=== PATIENT | female | born 1955 | race Caucasian/White ===

== ENCOUNTER 2019-05-08 15:00 | Inpatient (IN) | payer MEDICARE ==
--- NOTE | 2019-05-21 17:02 | HP ---
HISTORY AND PHYSICAL: DATE OF ADMISSION/SURGERY: 05/29/19 DATE OF OFFICE VISIT: 05/19/19 SURGEON: Linn Robles MD * (DICTATED BY RANDY TALLEY) PROCEDURE: Right total knee arthroplasty. CHIEF COMPLAINT: Right knee pain. HISTORY OF PRESENT ILLNESS: Ms. Coley is a 64-year-old female with severe right knee pain secondary to end-stage osteoarthritis. She has elected to proceed with a right total knee arthroplasty. PAST MEDICAL HISTORY: Depression and osteoarthritis. 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 CURRENT MEDICATIONS: 1. Zoloft 200 mg daily. 2. Vitamin E. 3. Turmeric. 4. Wellbutrin 200 mg daily. 5. Clonazepam 1 mg a day. 6. Cinnamon. 7. Vitamin D3. ALLERGIES: No known drug allergies. FAMILY HISTORY: Diabetes and cancer. SOCIAL HISTORY: She is a 64-year-old female. She lives with her . She does not smoke or use drugs. REVIEW OF SYSTEMS: A complete 14-point review of systems was reviewed with the patient. It was all negative or noncontributory. PHYSICAL EXAMINATION GENERAL: She is well developed, well nourished, in no acute distress. VITAL SIGNS: She stands 62 inches tall, weighs 193 pounds. Her blood pressure is 138/88, her heart rate is 77. HEENT: Normocephalic, atraumatic. NECK: Supple. No palpable lymph nodes. PULMONARY: The lungs are clear to auscultation bilaterally. CARDIO: Regular rate and rhythm. Strong S1 and S2. ABDOMEN: Soft, nontender, and nondistended. NEUROLOGIC: She is alert and oriented x3. MUSCULOSKELETAL: Right lower extremity, the skin is intact. There are no open wounds or abrasions. There is some mild effusion of the right knee joint, some tenderness along the medial joint line. Range of motion is 10 to 120 degrees of flexion with patellofemoral crepitus. She is able to dorsiflex and plantarflex, has a 2+ dorsalis pedis pulse and intact sensation. ASSESSMENT AND PLAN: Ms. Coley is a 64-year-old female with severe end- stage osteoarthritis of the right knee. She has failed conservative treatment and elected to proceed with a right total knee arthroplasty. The surgery is scheduled for 05/29/[address] Robles discussed the risks and benefits of the surgery at today's visit and all of her questions were answered. She will follow up with Dr. Robles 2 weeks after the surgery. RANDY TALLEY [id number]/[facility] #: [id number] EDNA
[2019-05-28] MEDS ORDERED: Buffered Lidocaine 1% SYRIN* 1 ML/SYRINGE INTRADERM ONE (13:49)
[2019-05-29] MEDS ORDERED: Dexamethasone IV* 4 MG/ML 1 ML (4 MG) IV SLOW PU ONE (06:00)
[2019-05-29] MEDS ORDERED: Lactated Ringers 1000 ML Bag* 1,000 ML IV SCH (06:00)
[2019-05-29] MEDS ORDERED: Gabapentin CAP(*) 300 MG PO ONE (06:00)
[2019-05-29] MEDS ORDERED: Famotidine IV* 10 MG/ML 2 ML (20 mg) IV ONE (06:00)
[2019-05-29] MEDS ORDERED: celeCOXIB CAP* 200 MG PO ONE (06:00)
[2019-05-29] MEDS ORDERED: Gabapentin CAP(*) 300 MG ONE (07:55)
[2019-05-29] MEDS ORDERED: Dexamethasone IV* 4 MG/ML 1 ML (4 MG) ONE (07:55)
[2019-05-29] MEDS ORDERED: celeCOXIB CAP* 200 MG ONE (07:56)
[2019-05-29] MEDS ORDERED: ceFAZolin 2 GM in NS PREMIX(*) 2 GM/100 ML BAG IVPB ONE (07:56)
[2019-05-29] MEDS ORDERED: Buffered Lidocaine 1% SYRIN* 1 ML/SYRINGE INTRADERM ONE (07:56)
[2019-05-29] MEDS ORDERED: Famotidine IV* 10 MG/ML 2 ML (20 mg) ONE (07:56)
[2019-05-29] MEDS ORDERED: Tranexamic Acid 1,000 MG in NS 0.9% 50 ML IV ONE (08:00)
[2019-05-29] MEDS ORDERED: ROPIVACAINE 5 MG/ML 30 ML BTL (0.5%) ONE ×2 (08:08→09:00)
[2019-05-29] MEDS ORDERED: Lidocaine 2% PF * 5 ML VIAL ONE (08:08)
[2019-05-29] MEDS ORDERED: Midazolam* 1 MG/ML 2 ML VIAL (2 MG) ONE ×2 (08:10→10:12)
[2019-05-29] MEDS ORDERED: fentaNYL* 50 MCG/ML 2 ML VIAL (100 MCG VIAL) ONE ×2 (08:10→11:27)
[2019-05-29] MEDS ORDERED: Phenylephrine 40 MCG/ML SYRINGE ONE (09:23)
[2019-05-29] MEDS ORDERED: Bupivacaine 0.5% SDV PF* 30ML VIAL ONE (10:21)
[2019-05-29] MEDS ORDERED: Acetaminophen IV 1GM/100ML * 1,000 MG/100 ML VIAL IVPB ONE (10:26)
[2019-05-29] MEDS ORDERED: Ondansetron INJ* 2 MG/ML VIAL IV PRN ×2 (10:26→11:00)
[2019-05-29] MEDS ORDERED: Naloxone* 0.4 MG/ML 1 ML VIAL IV PRN (10:26)
[2019-05-29] MEDS ORDERED: diPHENhydraMINE PO* 25 MG PO PRN (11:00)
[2019-05-29] MEDS ORDERED: Ondansetron ODT TAB* 4 MG PO PRN (11:00)
[2019-05-29] MEDS ORDERED: diPHENhydraMINE IV* 50 MG/ML 1 ml VIAL (BENADRYL) IV PRN (11:00)
[2019-05-29] MEDS ORDERED: Morphine INJ* 2 MG/ML 1 ML SYRINGE (TWO MG - NEW SYRINGE VERSION) IV PRN (11:00)
[2019-05-29] MEDS ORDERED: oxyCODONE/Acetamin 5/325 MG* TAB PO PRN ×2 (11:00)
[2019-05-29] MEDS ORDERED: traMADol TAB* 50 MG PO PRN (11:00)
[2019-05-29] MEDS ORDERED: Magnesium Hydroxide LIQ* 30 ML UDC PO PRN (11:00)
[2019-05-29] MEDS ORDERED: clonazePAM TAB(*) 1 MG PO PRN (11:04)
[2019-05-29] MEDS ORDERED: HYDROmorphone INJ1* 1 MG/ML SYRINGE IV PRN (11:23)
[2019-05-29] MEDS ORDERED: Acetaminophen IV 1GM/100ML * 100 ML ONE (11:23)
--- NOTE | 2019-05-29 11:23 | PN ---
Progress Note - Progress Note Date of Service: 05/29/19 Note: resting in recovery; pain well controlled. able to DF/PF, 2+ DP pulse. dressing c/d/i
[2019-05-29] MEDS: fentaNYL* 50 MCG/ML 2 ML VIAL (100 MCG VIAL) IV PRN ×2 (11:27→11:53)
[2019-05-29] MEDS: Lactated Ringers 1000 ML Bag* 1,000 ML IV SCH ×2 (13:16→23:12)
[2019-05-29] MEDS ORDERED: oxyCODONE/Acetamin 5/325 MG* TAB ONE (13:35)
[2019-05-29] MEDS: Acetaminophen TAB* 325 MG PO SCH ×2 (13:45→22:10)
[2019-05-29] MEDS ORDERED: Propofol* 500 MG/50 ML BTL ONE (14:34)
[2019-05-29] MEDS ORDERED: Propofol* 10 MG/ML 20 ML BTL ONE (14:35)
[2019-05-29] MEDS: oxyCODONE TAB* 5 MG TAB PO PRN (16:03)
[2019-05-29] MEDS: ceFAZolin 1 GM* Q8H (AddVan) IVPB SCH ×2 (16:52)
[2019-05-29] MEDS ORDERED: ceFAZolin 1 GM in Dextrose (*) 1 GM/50 ML BAG IVPB SCH (17:15)
--- NOTE | 2019-05-29 17:47 | OP ---
Operative Report - Blank - Operative Report Date of Operation: 05/29/19 Note: GUILLE RODRIGUEZ 1955 Date of Surgery: 05/29/19 Linn Robles MD [employer] Supervisor: Gladys PADILLA did help throughout the procedure with preparation of the knee, wound retraction, manipulation of the knee, and wound closure. Anesthesiologist: Dr. Cisneros Anesthesia Type: Spinal Preoperative Diagnosis: Right severe degenerative osteoarthritis of the knee Postoperative Diagnosis: As above Procedure Performed: Right Total Knee Arthroplasty Tourniquet time: 39 minutes Complications: None Specimen: Bone and cartilage from the right knee joint sent to pathology. Hardware Used: Cemented Patel [employer] Nephew total knee hardware was used - For the femur a size 4 right narrow oxinium legion posterior stabilized femoral component, for the tibia a size 3 right masood II tibial baseplate, for the insert a size 9mm 3-4 posterior stabilized articular polyethylene insert, and for the patella a size 32 3-peg all poly patella. Brief History/Indication: GUILLE RODRIGUEZ was known in clinic and had a history of severe right knee pain and swelling. She failed conservative treatment with anti-inflammatories, pain pills, intra-articular injections and physical therapy. She elected to undergo right total knee arthroplasty due to continued pain and decreased quality of life. Radiographs showed severe end stage osteoarthritis of the knee with bone on bone contact. Informed consent was obtained from the patient. She understood the risks of surgery included but were not limited to: bleeding, infection, damage to nearby structures, intraoperative fracture, nerve palsy, failure of the hardware, early loosening, knee stiffness or loss of motion, anesthesia complications, stroke, heart attack , blood clot and . She wished to proceed. Intra-Operative Findings: Intraoperatively the patient was noted to have severe loss of cartilage in all 3 compartments of the knee. Description of the Procedure: GUILLE RODRIGUEZ was identified in the preanesthesia unit. Her right knee was marked as the correct operative side. Informed consent was signed and placed in the chart. The patient was taken to the operating room and placed under anesthesia without complication. A johnson catheter was placed. A tourniquet was placed on the right thigh. The right lower extremity was prepped and draped in the usual sterile fashion. Preoperative time-out was made to correctly identify the patient, side and site. Appropriate intraoperative antibiotics were given within one hour of incision. Tourniquet was inflated. A midline incision was made and carried sharply down to the extensor mechanism. A new 10 blade was used to make a standard medial parapatellar arthrotomy. The patella was subluxed laterally. Electrocautery was used to dissect soft tissue off the superomedial tibia to the midsagittal plane. The knee was flexed up. The anterior horn of the lateral meniscus and the ACL were sharply incised. A drill was used to enter the distal femur. The intramedullary distal femoral cutting guide was pinned on the distal femur. The oscillating saw was used to make the distal femoral cut. The external rotation guide was pinned on the distal femur and the distal femur was sized to a size 4. The size 4 multi-cutting jig was pinned on the distal femur. The oscillating saw was used to make the appropriate 4 chamfer cuts. Next the PCL was completely released. The extramedullary tibial cutting guide was pinned on the proximal tibia and the oscillating saw was used to make the proximal tibial cut perpendicular to the mechanical axis of the tibia. The bone was carefully removed. The knee was brought out into full extension. The spacer block was placed and had excellent fit with the knee in full extension. The medial and lateral ligaments were well balanced. The flexion and extension gaps were well balanced. The knee was flexed up. Lamina size cutter was placed both medially and laterally. Any remaining meniscus was removed with electrocautery. Curved osteotome was used to remove any posterior osteophytes. The tibial tray and drop arleen were placed and confirmed a satisfactory tibial cut. The size 4 right narrow femoral trial was impacted onto the distal femur. This trial had excellent fit and stability. The box for the posterior stabilized implant was prepared using a box cut osteotome and a reamer. Next a tibial tray trial and 9 mm insert trial was placed. The knee was taken through a range of motion and had full extension to 130 degrees of flexion. Patellofemoral tracking was satisfactory. The patella was inverted and sized to a size 32. Three peg holes were drilled through the size 32 drill guide. The trial patella was placed and the knee was taken through a range of motion. There was satisfactory patellofemoral tracking. All trials were removed. The tibia was subluxed anteriorly and sized to a size 3. The proximal tibial was prepared with a size 3 keel punch. All bony cut surfaces were irrigated with sterile saline and dried. Final implants were cemented into place starting with the tibia, followed by the femur, and last the patella. A 9 mm insert trial was placed and the knee was brought into full extension. Tourniquet was turned down and the knee was copiously irrigated with sterile saline. Electrocautery was used to obtain meticulous hemostasis. Once the cement had fully cured, the insert trial was removed. Any excess cement was removed from around the hardware and capsule. Final insert chosen was a 9 mm posterior stabilized Masood II articular insert size 3-4. Stability of the insert was checked and noted to be stable. The extensor mechanism was closed using number 1 vicryls. The rest of the incision was closed in a layered fashion using 0 and 2-0 vicryls. The skin was closed using 3-0 nylon suture. Sterile xeroform, 4x4s and webril were used to cover the incision. Dat wrap and cold pack were used to cover the dressings. The patients anesthesia was reversed without difficulty. She was taken to the PACU in stable condition. Intended weight-bearing will be as tolerated.
[2019-05-29] MEDS: Docusate CAP* 100 MG PO SCH (20:53)
[2019-05-29] MEDS: HYDROcodone/ACETAMIN 5-325 MG* 1 TAB PO SCH (20:54)
[2019-05-29] MEDS: Magnesium Hydroxide LIQ* 30 ML UDC PO SCH (20:54)
[2019-05-29] MEDS: Sertraline* 100 MG TAB PO SCH (20:54)
[2019-05-30] MEDS: ceFAZolin 1 GM* Q8H (AddVan) IVPB SCH ×4 (01:36→09:51)
[2019-05-30] MEDS: Cyclobenzaprine TAB* 10 MG PO PRN ×3 (03:58→16:45)
[2019-05-30] MEDS: oxyCODONE TAB* 5 MG TAB PO PRN ×4 (03:58→21:47)
[2019-05-30] MEDS: Acetaminophen TAB* 325 MG PO SCH (06:23)
[2019-05-30 06:26] LABS: Hematocrit 32 % (35-47); Hemoglobin 11.1 g/dL (12.0-16.0); Mean Platelet Volume 6.8 fL (7.4-10.4); Platelet Count 189 10^3/uL (150-450)
[2019-05-30 06:46] LABS: BUN/Creatinine Ratio 26.4 (8-20); Calcium 8.7 mg/dL (8.6-10.3); EGFR African American 139.7 (>60); EGFR Non-African American 115.4 (>60); Potassium 3.9 mmol/L (3.5-5.0)
[2019-05-30] MEDS: CINNAMON BARK PO SCH ×2 (08:08→16:47)
[2019-05-30] MEDS: TURMERIC ROOT EXTRACT PO SCH ×2 (08:08→16:46)
[2019-05-30] MEDS: Vitamin B Complex TAB PO SCH (08:11)
[2019-05-30] MEDS: buPROPion SR TAB.SR* 200 MG PO SCH (08:11)
[2019-05-30] MEDS: Morphine TAB Extended Release (*) 15 MG TAB.ER PO SCH ×2 (08:11→20:11)
[2019-05-30] MEDS: Apixaban* 2.5 MG TAB PO SCH ×2 (08:13→21:47)
[2019-05-30] MEDS: Vitamin THERAPEUTIC TAB PO SCH (08:13)
[2019-05-30] MEDS: Magnesium Hydroxide LIQ* 30 ML UDC PO SCH ×2 (08:13→21:47)
[2019-05-30] MEDS: Docusate CAP* 100 MG PO SCH ×2 (08:13→21:47)
[2019-05-30] MEDS: HYDROcodone/ACETAMIN 5-325 MG* 1 TAB PO SCH (08:17)
--- NOTE | 2019-05-30 08:24 | PN ---
Progress Note - Progress Note Date of Service: 05/30/19 SOAP: Subjective: POD #1 Right TKA. C/O pain with movement. Denies CP/SOB, f/c, n/v or calf pain. Objective: Vital Signs: Temp Pulse Resp BP Pulse Ox 97.7 F 94 16 134/78 97 05/30/19 03:46 05/30/19 03:46 05/30/19 08:14 05/30/19 03:46 05/30/19 04:59 Gen: A&Ox3, NAD at rest laying in bed RLE: Dressing C/D/I. Thigh soft with TTP. + f/e at ankle and MTPs, N/V intact. Calf soft, NT Labs: Laboratory Results - last 24 hr 05/30/19 05/30/19 05:56 05:56 Hgb 11.1 L Hct 32 L Plt Count 189 MPV 6.8 L Sodium 138 Potassium 3.9 Chloride 104 Carbon Dioxide 29 Anion Gap 5 BUN 14 Creatinine 0.53 Est GFR ( Amer) 139.7 Est GFR (Non-Af Amer) 115.4 BUN/Creatinine Ratio 26.4 H Glucose 158 H Calcium 8.7 Assessment: POD #1 Right TKA Plan: Cont with current pain medication PT, WBAT RLE Eliquis for DVT ppx Plan for d/c tomorrow once pain is more under control
[2019-05-30] MEDS: Sertraline* 100 MG TAB PO SCH (21:47)
[2019-05-31 05:54] LABS: Hematocrit 35 % (35-47); Hemoglobin 11.9 g/dL (12.0-16.0); Mean Platelet Volume 6.7 fL (7.4-10.4); Platelet Count 207 10^3/uL (150-450)
[2019-05-31] MEDS: oxyCODONE TAB* 5 MG TAB PO PRN ×2 (05:56→09:54)
[2019-05-31 07:36] VITALS: BP 131/49
[2019-05-31] MEDS: Morphine TAB Extended Release (*) 15 MG TAB.ER PO SCH (07:47)
[2019-05-31] MEDS: Magnesium Hydroxide LIQ* 30 ML UDC PO SCH (09:53)
[2019-05-31] MEDS: Docusate CAP* 100 MG PO SCH (09:53)
[2019-05-31] MEDS: Vitamin B Complex TAB PO SCH (09:53)
[2019-05-31] MEDS: buPROPion SR TAB.SR* 200 MG PO SCH (09:53)
[2019-05-31] MEDS: Vitamin THERAPEUTIC TAB PO SCH (09:54)
[2019-05-31] MEDS: Apixaban* 2.5 MG TAB PO SCH (09:54)
[2019-05-31] MEDS: CINNAMON BARK PO SCH (09:55)
[2019-05-31] MEDS: TURMERIC ROOT EXTRACT PO SCH (09:56)
--- NOTE | 2019-05-31 10:09 | PN ---
Progress Note - Progress Note Date of Service: 05/31/19 SOAP: Subjective: Pt is doing well. Pain better controlled. Denies calf pain, cp/sob or F/C Objective: Pe- 64 y/o WDWN F NAD A&Ox3 RLE- dressing changed inc c/d/i, calf soft NT, +DF/PF ankle, +2 Dp pulse, SILT distally Vital Signs Temp Pulse Resp BP Pulse Ox 98.2 F 82 18 131/49 96 05/31/19 07:36 05/31/19 07:36 05/31/19 09:57 05/31/19 07:36 05/31/19 07:36 Laboratory Results - last 24 hr 05/31/19 05:37 Hgb 11.9 L Hct 35 Plt Count 207 MPV 6.7 L Assessment: POD #2 Right TKA Plan: Percocet, ms contin for pain PT, WBAT RLE Eliquis for DVT ppx Plan for d/c home today with home services
--- NOTE | 2019-05-31 10:21 | DS ---
Orthopedic Discharge Summary - Discharge Summary Date of Admission:05/29/19 Date of Discharge: 05/31/19 Date of Surgery: 05/29/19 Attending Orthopedic Provider: Dr. Robles Pre-operative Diagnosis: Right knee osteoarthritis Operative Procedure: Right total knee replacement Disposition of Patient: Home Home care vs Outpatient services: Home care Condition of Patient: Stable Pain medication RX at discharge: Percocet and MS Contin DVT prophylaxis RX at discharge: Eliquis History: GUILLE RODRIGUEZ is a 64 year old F with years of increasingly severe right knee pain. Patient has failed conservative management and has elected to undergo a right total knee replacement Hospital Course: GUILLE was admitted to [facility] on 05/29/19. Patient underwent a right total knee replacement without complication followed by a brief recovery in PACU and transfer to the Short Stay Surgical Unit in stable condition. Our hospitalist service, physical therapy and occupational therapy also participated in this patients care. Post-op day 1: patient was alert and in no acute distress. Dressing was clean, dry and intact. Operative extremity dorsiflexion and plantarflexion intact, sensation intact to light touch distally, DP2+. Post-op day two: dressing was changed, incision was clean , dry and intact. Patient was deemed to be medically and orthopedically stable for discharge with home services. Physical therapy goals were met. Home Medications Medication Instructions Recorded Confirmed Type Multivitamin [Multivitamins] 1 cap PO QAM 12/26/13 05/29/19 History Sertraline* [Zoloft*] 200 mg PO BEDTIME 03/09/17 05/29/19 History clonazePAM TAB(*) [Klonopin TAB(*)] 1 mg PO BEDTIME PRN 03/09/17 05/29/19 History buPROPion HCl [Bupropion HCl ER] 200 mg PO QAM 04/30/19 05/29/19 History Cholecalciferol (Vitamin D3) 5,000 unit PO QAM 05/19/19 05/29/19 History [Vitamin D3] Cinnamon Bark [Cinnamon] 1,200 mg PO QAM 05/19/19 05/29/19 History Turmeric Root Extract [Turmeric] 1,580 mg PO QAM 05/19/19 05/29/19 History Vitamin B Complex CAP* [B Complex 1 dose PO QAM 05/19/19 05/29/19 History CAP*] Acetaminophen TAB* [Tylenol TAB*] 975 mg PO Q8HR tab 05/29/19 Rx Apixaban* [Eliquis*] 2.5 mg PO BID #60 tab 05/29/19 Rx Docusate CAP* [Colace Cap*] 100 mg PO BID PRN #60 cap 05/29/19 Rx Hydrocodone/Acetaminophen 1 tab PO BID 05/29/19 05/29/19 History [Hydrocodone-Acetamin 5-325 mg] oxyCODONE/Acetamin 5/325 MG* 1 tab PO Q4H PRN #0 tab MDD 10 05/29/19 Rx [Percocet 5/325 TAB*] oxyCODONE/Acetamin 5/325 MG* 2 tab PO Q4H PRN #60 tab MDD 10 05/29/19 Rx [Percocet 5/325 TAB*] Morphine TAB Extended Rel(*) [Ms 15 mg PO Q12H tab.er 05/31/19 Rx Contin(*)] Discharge Instructions following Orthopedic Surgery: Activity: * Weight Bearing as tolerated * Continue physical therapy and occupational therapy exercises as shown * you have elected to have home physical therapy, continue therapy exercises at home. Wound care: * OK to shower on post-op day 3, no bathing, swimming, or submerging wound. * Use gentle soap, pat dry. Cover with gauze, GAYLA wrap or tape. * you elected to have a visiting home nurse, they will perform wound checks. Call Orthopedic office for: * Increased drainage * Redness * Increased pain * Fever Go to ER with shortness of breath or chest pain. Diet: * Regular diet * Increase fluids and fiber to prevent constipation. * Continue to use stool softeners, call office if no bowel motion within 48 hours. Medications See Home Medication List in your packet for medications that you should take after discharge. DVT Prophylaxis: Eliquis Dosin.5 mg, 1 tab every 12 hours x 30 days. Increases bleeding tendency Pain Control: Percocet 5/325 mg 1 tab for moderate pain and 2 tabs for severe pain by mouth every 4 hours as needed. Maximum of 10 tabs per day. Hold for sedation , wean off as soon as pain allows Please note that Percocet contains Tylenol (acetaminophen). Maximum daily dose of Tylenol is 4000 mg from all sources. Morphine Sulfate ER 15 Mg 1 tab every 12 hours x 5 days as needed for pain Antibiotics are required prior to any dental work. FOLLOW UP: Follow up with Dr. Holloway] Within [10-14] days, call for appointment Please call our office with any questions or concerns ([phone]) RX sen to [facility] 05/31
== END 2019-05-31 11:32 | disposition home health service (06) | DRG 470 ==
LOC: AA 05-29 07:03 → SSU 05-29 11:01
PROVIDERS: ADMIT Orthopaedic Surgery Adult Reconstructive Orthopaedic Surgery; ATTEND Orthopaedic Surgery Adult Reconstructive Orthopaedic Surgery
PROC: 0SRC069 Replacement of Right Knee Joint with Oxidized Zirconium on Polyethylene Synthetic Substitute, Cemented, Open Approach (ICD-10-PCS; principal; 2019-05-29 09:00)
DX: M17.11 Unilateral primary osteoarthritis, right knee (principal); F32.9 Major depressive disorder, single episode, unspecified; F41.9 Anxiety disorder, unspecified; G89.29 Other chronic pain; M25.761 Osteophyte, right knee; Z79.899 Other long term (current) drug therapy
CPT/HCPCS: 36415; 80048; 85014; 85018; 85049; 88305; 88311; A9270-GY; C1776; J0690; J1100; J2250; J2270; J2405; J2704; J2795; J3010; J3490

== ENCOUNTER 2020-01-01 09:12 | Inpatient (IN) ==
[~2020-01-01 09:12] MED LIST: Buffered Lidocaine 1% SYRIN 1 ml INTRADERM ONE; Dexamethasone IV 4 MG/ML VIAL 1 ml VIAL IV SLOW PU ONE; Lactated Ringers 1000 ml BAG 1,000 ML IV SCH; Midazolam 2 mg/2 ml VIAL 1 mg/ml 2 ml VIAL (2 mg) ONE; fentaNYL 100 mcg/2 ml 50 MCG/ML VIAL ONE
[2020-01-01] MEDS ORDERED: Dexamethasone IV 4 MG/ML VIAL 1 ml VIAL ONE (09:30)
[2020-01-01] MEDS ORDERED: ceFAZolin 2 GM PREMIX 2 GM/50 ML BAG ONE (09:31)
[2020-01-01] MEDS ORDERED: Rocuronium 50 mg VIAL 10 mg/ml 5 ml VIAL (50 mg) ONE (09:33)
[2020-01-01] MEDS ORDERED: ROPIVACAINE 5 MG/ML 30 ML BTL (0.5%) ONE ×2 (10:34→10:56)
[2020-01-01] MEDS ORDERED: Lidocaine 2% PF 5 ML VIAL ONE ×2 (10:34→11:56)
[2020-01-01] MEDS ORDERED: Propofol 10 MG/ML 20 ML BTL ONE (11:56)
[2020-01-01] MEDS ORDERED: Bupivacaine 0.5% SDV PF 30ML VIAL ONE ×2 (11:56→13:46)
[2020-01-01] MEDS ORDERED: fentaNYL 100 mcg/2 ml 50 MCG/ML VIAL IV PRN (12:47)
[2020-01-01] MEDS ORDERED: HYDROmorphone 1 MG/1 ML SYRINGE IV PRN (12:47)
[2020-01-01] MEDS ORDERED: Naloxone 0.4 mg VIAL 0.4 mg/ml 1 ml VIAL IV PRN (12:47)
[2020-01-01] MEDS ORDERED: Ondansetron 4 mg VIAL 2 MG/ML 2 ml VIAL IV PRN ×2 (12:47→13:24)
[2020-01-01] MEDS ORDERED: diPHENhydraMINE IV 50 MG/ML 1 ml VIAL (BENADRYL) IV PRN (13:24)
[2020-01-01] MEDS ORDERED: Morphine 2 MG/ML SYRINGE IV PRN (13:24)
[2020-01-01] MEDS ORDERED: Ondansetron ODT 4 mg TAB 4 MG TAB PO PRN (13:24)
[2020-01-01] MEDS ORDERED: Lactulose 30 ml UDC PO PRN (13:24)
[2020-01-01] MEDS ORDERED: diPHENhydraMINE 25 mg TAB PO PRN (13:24)
[2020-01-01] MEDS ORDERED: Magnesium Hydroxide LIQ 30 ML UDC PO PRN (13:24)
[2020-01-01] MEDS: Lactated Ringers 1000 ml BAG 1,000 ML IV SCH (16:42)
[2020-01-01] MEDS: oxyCODONE/Acetamin 5/325 mg TAB PO PRN (17:42)
[2020-01-01] MEDS: ceFAZolin 1 GM ADVAN 1 GM in NS 0.9% 50 ML 50 ML IVPB SCH (19:57)
[2020-01-01] MEDS: Magnesium Hydroxide LIQ 30 ML UDC PO SCH (20:35)
[2020-01-02] MEDS: oxyCODONE/Acetamin 5/325 mg TAB PO PRN ×3 (00:16→11:39)
[2020-01-02] MEDS: Lactated Ringers 1000 ml BAG 1,000 ML IV SCH (03:07)
[2020-01-02] MEDS: ceFAZolin 1 GM ADVAN 1 GM in NS 0.9% 50 ML 50 ML IVPB SCH ×2 (04:14→11:31)
[2020-01-02 06:09] LABS: Hematocrit 32 % (35-47); Hemoglobin 11.1 g/dL (12.0-16.0); Mean Platelet Volume 7.1 fL (7.4-10.4); Platelet Count 210 10^3/uL (150-450)
[2020-01-02 06:26] LABS: BUN/Creatinine Ratio 33.3 (8-20); Calcium 8.5 mg/dL (8.6-10.3); EGFR African American 128.4 (>60); EGFR Non-African American 106.1 (>60); Potassium 4.2 mmol/L (3.5-5.0)
[2020-01-02] MEDS: Magnesium Hydroxide LIQ 30 ML UDC PO SCH (08:28)
[2020-01-02] MEDS ORDERED: Vitamin THERAPEUTIC TAB PO SCH (09:00)
[2020-01-02 11:38] VITALS: BP 124/58
== END 2020-01-02 13:25 | disposition home health service (06) | DRG 470 ==
LOC: AA 09:12 → SSU 16:01
PROVIDERS: ADMIT Orthopaedic Surgery Adult Reconstructive Orthopaedic Surgery; ATTEND Orthopaedic Surgery Adult Reconstructive Orthopaedic Surgery